=== PATIENT | male | born 1975 | race Caucasian/White ===

== ENCOUNTER 2016-04-02 11:02 | Emergency (ER) | payer OTHER ==
[~2016-04-02] VITALS: Ht 175.3 cm; Wt 77.2 kg
[2016-04-02 11:06] VITALS: TEMP 36.5; Ht 175.3 cm; Wt 77.2 kg
[2016-04-02] MEDS ORDERED: AMT50 PO (11:51)
--- NOTE | 2016-04-02 12:24 | DIAGNOSTIC IMAGING REPORT ---
RIGHT ELBOW MIN 3 VIEWS ROUTINE CLINICAL HISTORY: Right elbow pain. Ulnar neuritis. COMPARISON: None FINDINGS: Alignment of the right elbow is anatomic. There is no acute fracture or joint effusion. There is no suspicious osseous lesion. There is moderate spurring of the olecranon at the insertion of the triceps. IMPRESSION: 1. No acute fracture or joint effusion of the right elbow. 2. Moderate olecranon spurring at the insertion of the triceps. Electronically signed by: Prudencio Leyva M.D. 04/02/2016 12:23 PM Dictated Date/Time: 04/02/2016 12:22 PM
[2016-04-02 12:52] VITALS: BP 115/82; PULSE 67; O2SAT 94
--- NOTE | 2016-04-02 17:34 | EMERGENCY ROOM VISIT NOTE ---
History First contact with patient: 11:10 Chief Complaint: ARM PAIN Stated Complaint: PAIN IN RT ARM/ELBOW History of Present Illness The patient is a 40 year old male who presents to the Emergency Room with complaints of right elbow/forearm pain and numbness extending into his fifth finger, and half of the ring finger. The patient reports that he has had the symptoms for the past few weeks. The patient reports that he has fallen several times over the past few weeks while attempting to shovel snow from his driveway, [place]. He does not specifically recall hitting his elbow. The patient denies any recent neck or shoulder pain. The patient is [id number]. He denies sleeping with his elbow bent. 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 He denies any prior history of similar pain. He currently rates his discomfort a 4 out of 10. The patient is [id number]. Review of Systems 10 system review was performed and was negative except for pertinent positives and negatives as indicated in history of present illness Past Medical/Surgical History Medical Problems: (1) Fibromyalgia Surgical Problems: (1) History of appendectomy Family History FH: cancer Social History Smoking Status: Current Every Day Smoker Alcohol Use: none Drug Use: none Marital Status: Housing Status: lives with family Occupation Status: employed Current/Historical Medications Scheduled Amitriptyline Hcl (Elavil), 50 MG PO SAT/SUN Allergies Coded Allergies: No Known Allergies (Unverified , 04/02/16) Physical Exam Vital Signs Date Time Temp Pulse Resp B/P Pulse Ox O2 Delivery O2 Flow Rate FiO2 04/02/16 12:52 67 16 115/82 94 04/02/16 11:06 36.5 70 16 132/84 97 Physical Exam CONSTITUTIONAL: Healthy and well nourished. Alert and oriented X 3 with positive affect. HEENT: Normocephalic, atraumatic. Pupils equal, round and reactive. NECK: Full active range of motion without discomfort. MUSCULOSKELETAL: Examination of the right elbow shows mild edema over the cubital canal. Positive compression test, positive Tinel at the cubital Tinel. No worsening pain with pronation or supination. No tenderness to palpation about the wrist. Equal meter tester primary strength bilaterally. Capillary refill is less than 2 seconds. INTEGUMENTARY: No rash or other significant dermatologic conditions noted. NEUROLOGIC: Right hand median, radial and ulnar motor and sensory are intact. Medical Decision & Procedures ER Provider Diagnostic Interpretation: My interpretation of right elbow x-rays does not show any acute fractures, joint effusion or bony spurring over the medial epicondyle region. Olecranon spurring is noted. Radiologist report is as follows: RIGHT ELBOW MIN 3 VIEWS ROUTINE CLINICAL HISTORY: Right elbow pain. Ulnar neuritis. COMPARISON: None FINDINGS: Alignment of the right elbow is anatomic. There is no acute fracture or joint effusion. There is no suspicious osseous lesion. There is moderate spurring of the olecranon at the insertion of the triceps. IMPRESSION: 1. No acute fracture or joint effusion of the right elbow. 2. Moderate olecranon spurring at the insertion of the triceps. ED Course Patient history and physical exam were performed. Nurse's notes were reviewed. The patient refused any analgesics. X-rays of the right elbow were normal. The patient was advised that his symptoms are classic for on her neuritis. The patient was instructed to protect the elbow to avoid any further trauma. He was encouraged to intermittently apply ice to the elbow. Ibuprofen or Tylenol as needed for pain. The patient was encouraged to follow up with his PCP for further management and possible orthopedic referral. The patient was happy with plan of care, and voiced understanding of all discharge instructions. Medical Decision Impression Primary Impression: Neuritis of right ulnar nerve Departure Information Dispostion Home / Self-Care Forms HOME CARE DOCUMENTATION FORM, IMPORTANT VISIT INFORMATION Patient Instructions My [facility] [employer] Fingerprint[employer] Additional Instructions Intermittently apply ice to elbow. Avoid any trauma/pressure on the right elbow. Ibuprofen 800 mg and/or Tylenol 1000 mg every 8 hours. You may also alternate these medications for more effective pain relief: Ibuprofen --4 HRS--> Tylenol --4 HRS--> ibuprofen --4 HRS--> Tylenol .... Follow-up with your family doctor for further management and possible referral to orthopedics.
== END 2016-04-02 12:53 | disposition home or self-care (01) ==
LOC: C.EDB 11:04 → C.EDD 12:53
DX: M79.2 Neuralgia and neuritis, unspecified (principal); M77.8 Other enthesopathies, not elsewhere classified; F17.200 Nicotine dependence, unspecified, uncomplicated; Z79.899 Other long term (current) drug therapy; Z80.9 Family history of malignant neoplasm, unspecified